=== PATIENT | male | born 2000 | race African-American/Black ===

== ENCOUNTER 2019-09-13 16:53 | Emergency (ER) | payer OTHER ==
[~2019-09-13] VITALS: Ht 190.5 cm; Wt 61.2 kg
[2019-09-13 16:54] VITALS: Ht 190.5 cm; Wt 61.2 kg
[2019-09-13 19:05] VITALS: BP 124/82
== END 2019-09-13 19:05 | disposition home or self-care (01) ==
LOC: ED 16:53
DX: R06.02 Shortness of breath (principal)
CPT/HCPCS: 87491; 87591; Q0092

== ENCOUNTER 2020-05-22 11:51 | Emergency (ER) | payer OTHER ==
[~2020-05-22] VITALS: Ht 190.5 cm; Wt 62.1 kg
[2020-05-22 11:57] VITALS: BP 114/74; Ht 190.5 cm; Wt 62.1 kg
== END 2020-05-22 14:12 | disposition home or self-care (01) ==
LOC: ED 11:51
DX: Z02.79 Encounter for issue of other medical certificate (principal)